=== PATIENT | male | born 1995 | race Caucasian/White ===

== ENCOUNTER 2017-02-01 21:05 | Emergency (ER) | payer OTHER ==
[~2017-02-01] VITALS: Wt 81.8 kg
--- NOTE | 2017-02-01 22:51 | ERD ---
ER Documentation Chief Complaint Date/Time DATE: 02/01/17 TIME: 22:49 Chief Complaint states not an emergency, needs an eye doctor, black spots in vision x3 mo HPI 21-year-old male presents in emergency department for floaters and black spots in the left upper quadrant of the left eye vision for 3 months now. Patient denies any eye pain. Patient denies any burning sensation in the eye. Patient denies any changes in vision. Patient denies any trauma on affected area. Patient denies any headache. Patient denies any loss of consciousness. Patient denies any double vision. ROS All systems reviewed and are negative except as per history of present illness. Medications Home Meds Reported Medications [none] Unknown Strength No Conflict Check 02/01/17 Allergies Allergies: Coded Allergies: No Known Allergy (Unverified , 02/01/17) PMhx/Soc Medical and Surgical Hx: pt denies Medical Hx, pt denies Surgical Hx History of Surgery: No Anesthesia Reaction: No Hx Neurological Disorder: No Hx Respiratory Disorders: No Hx Cardiac Disorders: No Hx Psychiatric Problems: No Hx Miscellaneous Medical Probl: No Hx Alcohol Use: No Hx Substance Use: No Hx Tobacco Use: No Smoking Status: Never smoker FmHx Family History: No coronary disease, No diabetes, No other Physical Exam Vitals Vital Signs Date Time Temp Pulse Resp B/P Pulse Ox O2 Delivery O2 Flow Rate FiO2 02/01/17 21:07 98.0 68 20 123/95 100 Physical Exam GENERAL: The patient is well developed and appropriate for usual state of health, in no apparent distress. CHEST: Clear to auscultation bilaterally. There are no rales, wheezes or rhonchi. HEART: Regular rate and rhythm. No murmurs, clicks, rubs or gallops. No S3 or S4. ABDOMEN: Soft, nontender and nondistended. Good bowel sounds. No rebound or guarding. No gross peritonitis. No gross organomegaly or masses. No Massey sign or McBurney point tenderness. BACK: No midline or flank tenderness. EXTREMITIES: Equal pulses bilaterally. There is no peripheral clubbing, cyanosis or edema. No focal swelling or erythema. Full range of motion. Grossly neurovascularly intact. NEURO: Alert and oriented. Cranial nerves 2-12 intact. Motor strength in all 4 extremities with 5/5 strength. Sensation grossly intact. Normal speech and gait. SKIN: There is no apparent rash or petechia. The skin is warm and dry. HEMATOLOGIC AND LYMPHATIC: There is no evidence of excessive bruising or lymphedema. No gross cervical, axillary, or inguinal lymphadenopathy. Results 24 hrs PROCEDURE: Ultrasound soft tissue CLINICAL INDICATION: Right eye floaters. TECHNIQUE: Ultrasound of the bilateral globes is performed utilizing erickson scale imaging. COMPARISON: None. FINDINGS: The bilateral anterior chambers and lenses as are unremarkable. The right vitreous body is also unremarkable. Subtle irregular echogenicity is seen in the posterior left vitrous body. IMPRESSION: 1. Normal sonographic appearance of the right globe. 2. Subtle irregular echogenicity in the posterior left vitreous body, possibly representing retinal detachment or vitreous hemorrhage. Emergent ophthalmology referral is recommended. RPTAT: HTAR .Lexx Woo MD, MD Date Time Electronically viewed and signed by .Lexx Woo MD, MD on 02/01/2017 23:13 .R/ CC: ANNALISA ROLAND NP Visual acuity was checked, right eye 20/25, left eye 20/25, both eyes 20/25. I discussed the findings and results and patient's physical examination, ultrasound results with mentating physician, Dr. Rodriges, considering the patient has been having the symptoms for 3 months now, most likely is a chronic retinal detachment, urgent evaluation by an shoe fitter specialist as necessary but evaluation tonight or transfer not necessary at this time. Patient 's vision is stable for the last 3 months and he has been having the symptoms. I discussed the results with the patient, is advised to see ophthalmology specialist within 1-2 days, is advised to contact primary care doctor for possible referral or was given resources were to follow-up for possible eye evaluation. Procedures/MDM Medical decision making: Patient symptoms suspect is consistent with retinal detachment as in the ultrasound, this may be chronic considering patient has had symptoms for the last 3 months already. Patient did not have any eye trauma. Patient's vision is stable for the last 3 months, has not changed. As per discussion with my attending physician, emergent ophthalmology evaluation here in emergency department for transfer is not necessary, outpatient management with ophthalmology specialists within 1-2 days is appropriate at this time. Patient was given resources. Patient was advised to return to emergency department for any worsening symptoms. 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 Additional Instructions: See ophthalmology specialist within 1-2 days ANNALISA ROLAND NP Feb 01, 2017 22:50
--- NOTE | 2017-02-01 23:13 | RADRPT ---
PROCEDURE: Ultrasound soft tissue CLINICAL INDICATION: Right eye floaters. TECHNIQUE: Ultrasound of the bilateral globes is performed utilizing erickson scale imaging. COMPARISON: None. FINDINGS: The bilateral anterior chambers and lenses as are unremarkable. The right vitreous body is also unr emarkable. Subtle irregular echogenicity is seen in the posterior left vitrous body. IMPRESSION: 1. Normal sonographic appearance of the right globe. 2. Subtle irregular echogenicity in the posterior left vitreous body, possibly representing retinal detachment or vitreous hemorrhage. Emergent ophthalmology referral is recommended. RPTAT: HTAR .Lexx Woo MD, MD Date Time Electronically viewed and signed by .Lexx Woo MD, MD on 02/01/2017 23:13 .R/
[2017-02-02] VITALS: BP 145/68; PULSE 90; RESP 20; TEMP 98
== END 2017-02-02 | disposition home or self-care (01) ==
LOC: FTE 21:05
DX: H33.21 Serous retinal detachment, right eye (principal)
CPT/HCPCS: 76536; Z7502